=== PATIENT | female | born 1985 | race Caucasian/White ===

== ENCOUNTER 2016-12-05 07:07 | Day surgery (SDC) | payer MEDICAID ==
[~2016-12-05] VITALS: Ht 162.6 cm; Wt 90.7 kg
[~2016-12-05 07:07] MED LIST: ADVIL200 MG PO; DOXYCYCLINE HY100 M2 PO; EFFEXOR XR150 MG PO; ESTRACE1 MG PO; HYDROCODONE-APA1 TAB PO; LIPITOR80 MG PO; PERCOCET 10/3251 TA1 PO; SINGULAIR10 MG PO; TENORMIN25 MG PO; TRAZODONE HCL150 MG PO; TRIMETHOPRIM100 MG PO; XANAX2 MG PO; ZANAFLEX4 MG PO
[2016-12-05 07:48] LABS: HEMATOCRIT 36.6 % (36.0-48.0); MCH 30.8 pg (26.0-34.0); MCHC 32.8 g/dL (31.0-37.0); MCV 94.1 fL (80.0-100.0); MEAN PLATELET VOLUME 10.1 fL (7.4-10.4); RBC 3.89 10x6/uL (4.00-5.40); RDW 13.4 % (11.5-14.5); WBC 7.6 10x3/uL (4.8-10.8)
[2016-12-05] MEDS ORDERED: BAYER CHEWABLE81 MG PO (08:24)
[2016-12-05 08:25] VITALS: BP 100/66; Ht 162.6 cm; Wt 90.7 kg
[2016-12-05] MEDS ORDERED: FISH OIL 1,0001 CA1 PO (08:25)
--- NOTE | 2016-12-05 12:07 | NUR ---
1155- IV D/C'D, PT TOLERATED. CATHETER INTACT. 1158- UP OOB TO BR, VOIDED WITHOUT DIFFICULTY 1200- DISCHARGE INSTRUCTIONS COMPLETED. PT VERBALIZED UNDERSTANDING. PAPERWORK COMPLETED 1207- PT DISCHARGED VIA WHEELCHAIR.
--- NOTE | 2016-12-24 11:14 | OP ---
PATIENT NAME: SURYA CHEN MEDICAL RECORD: [id number] :84 LOCATION:D.OPS ADMISSION DATE: SURGEON: THANIA DAMON MD DATE OF OPERATION: 12/23/2016 PREOPERATIVE DIAGNOSIS: Bilateral hip pain. POSTOPERATIVE DIAGNOSIS: Bilateral hip pain. PROCEDURE: Bilateral hip injections under anesthesia. SURGEON: Thania Damon MD. ANESTHESIA: General. INTRAOPERATIVE COMPLICATIONS: None. SUMMARY OF PATHOLOGIC FINDINGS: Essentially none. OPERATIVE SUMMARY IN DETAIL: After obtaining the appropriate preoperative orthopedic surgery consents as well as anesthetic consultation, evaluation and clearance, the patient was brought to the operating room and placed on the operating table in supine position. After adequate general laryngeal mask airway was administered, the patient's bilateral inguinal regions were prepped and draped in a routine sterile fashion. An 18-gauge needle was then placed into the right hip under fluoroscopic guidance. A small amount of Isovue was utilized to be sure that it was in the appropriate position. This was followed by 5-mm 0.25% Marcaine with epinephrine and 40 mg of Depo-Medrol. Bandage was applied at this puncture site. Attention was turned to the left side. Again, on the left side, an 18-gauge needle was guided into the hip capsule, careful to avoid the neurovascular structures. A small amount of Isovue was utilized to be sure that the tip was inside the hip capsule. Again, 5 cc of 0.25% Marcaine with epinephrine and 40 mg of Depo-Medrol were injected into the hip. The patient tolerated the procedure well. Bandage was applied. She was taken to recovery room in stable condition. All final needle and sponge counts were correct. TRANSINT:[id number] Voice Confirmation ID: [id number] DOCUMENT ID: [id number] THANIA DAMON MD at 1114 CC: [id number] DICTATION DATE: 12/23/16 1826 BLOCK BREAKER: 12/23/16 2327 [facility] 12/05/[address] [address]
[2017-02-21] MEDS ORDERED: LUNESTA3 MG PO (10:54)
[2017-02-21] MEDS ORDERED: TOPAMAX25 MG PO (10:54)
== END 2016-12-05 12:07 | disposition home or self-care (01) ==
LOC: D.OPS 07:07 → D.PAN 10:00 → D.OPS 11:25 → D.PAN 11:25 → D.OPS 12:07 → D.PAN 12:30 → D.OPS 12:30
PROVIDERS: Anesthesiology
DX: M25.551 Pain in right hip (principal); M25.552 Pain in left hip; M24.271 Disorder of ligament, right ankle

== ENCOUNTER 2016-12-06 10:32 | Emergency (ER) | payer MEDICAID ==
[2016-12-05 08:25] VITALS: BMI 34.4
[~2016-12-06 10:32] MED LIST changes: +BAYER CHEWABLE81 MG PO; +FISH OIL 1,0001 CA1 PO
[2016-12-06 12:00] LABS: APPEARANCE HAZY (CLEAR); BILIRUBIN NEGATIVE (NEGATIVE); COLOR YELLOW (YELLOW); GLUCOSE NEGATIVE (NEGATIVE); KETONE NEGATIVE (NEGATIVE); LEUKOCYTE ESTERASE NEGATIVE (NEGATIVE); NITRITE NEGATIVE (NEGATIVE); PROTEIN NEGATIVE (NEGATIVE); SPECIFIC GRAVITY 1.015 (1.005-1.020); UROBILINOGEN NORMAL (NORMAL)
[2016-12-06 12:02] LABS: BACTERIA FEW /hpf (NONE SEEN); MUCUS >1+ /lpf (NONE SEEN); WHITE CELLS - URINE 0-5 /hpf (0-5); YEAST <1+ /hpf (NONE SEEN)
[2016-12-06 12:03] LABS: UDS - AMPHET NEGATIVE QUAL (NEGATIVE); UDS - BARB NEGATIVE QUAL (NEGATIVE); UDS - BENZO POSITIVE QUAL (NEGATIVE); UDS - COCAINE NEGATIVE QUAL (NEGATIVE); UDS - METH NEGATIVE QUAL (NEGATIVE); UDS - OPIATE NEGATIVE QUAL (NEGATIVE); UDS - PCP NEGATIVE QUAL (NEGATIVE); UDS - THC NEGATIVE QUAL (NEGATIVE)
[2017-02-21] MEDS ORDERED: TOPAMAX25 MG PO (10:54)
[2017-02-21] MEDS ORDERED: LUNESTA3 MG PO (10:54)
== END 2016-12-06 12:39 | disposition home or self-care (01) ==
LOC: D.ER 10:32
PROVIDERS: Physician Assistant
DX: G89.18 Other acute postprocedural pain (principal); G43.909 Migraine, unspecified, not intractable, without status migrainosus; R30.0 Dysuria; E78.00 Pure hypercholesterolemia, unspecified; F41.9 Anxiety disorder, unspecified

== ENCOUNTER 2017-02-24 09:25 | Day surgery (SDC) | payer MEDICAID ==
[~2017-02-24] VITALS: Ht 162.6 cm; Wt 90.7 kg
[~2017-02-24 09:25] MED LIST changes: +LUNESTA3 MG PO; +TOPAMAX25 MG PO
[2017-02-24 11:02] VITALS: Ht 162.6 cm; Wt 90.7 kg
[2017-02-24 11:10] LABS: HEMATOCRIT 36.6 % (36.0-48.0); HEMOGLOBIN 11.9 g/dL (12-16); MCH 29.8 pg (26.0-34.0); MCHC 32.5 g/dL (31.0-37.0); MCV 91.5 fL (80.0-100.0); MEAN PLATELET VOLUME 10.1 fL (7.4-10.4); RDW 13.4 % (11.5-14.5); WBC 6.7 10x3/uL (4.8-10.8)
[2017-02-24] MEDS ORDERED: DILAUDID4 MG PO (13:47)
--- NOTE | 2017-02-24 14:14 | NUR ---
THE PATIENT REPORTS HAVING PAIN IN HER LEFT FOREARM. SHE REPORTS THIS PAIN IS A 8 ON 0-10 SCALE. SHE REPORTS FALLING A MONTH AGO AND THE PAIN IS THE SAME SINCE.
--- NOTE | 2017-02-24 14:24 | NUR ---
ANESTHESIA CONSUTLED ABOUT THE PATIENTS PAIN AND ORDERED NO MORE MEDICATION IN RR. DISCHARGE FROM PACU ORDRED
--- NOTE | 2017-02-24 16:10 | NUR ---
SIGNIFICANT OTHER HERE, PATIENT MORE AWAKE, ASSISTED TO WALK TO BATHROOM AND URINATE IN TOILET WITHOUT DIFFICULTY. ASSISTED TO DRESS IN PERSONAL CLOTHING
--- NOTE | 2017-02-24 16:50 | NUR ---
DISCHARGE INSTRUCTIONS REVIEWED WITH PATIENT AND SPOUSE. DISCHARGED HOME VIA WHEELCHAIR TO PRIVATE VEHICLE WITH SIGNIFICANT OTHER, FAITH
--- NOTE | 2017-03-12 15:22 | OP ---
PATIENT NAME: SURYA CHEN MEDICAL RECORD: [id number] :84 LOCATION:D.OPS ADMISSION DATE: SURGEON: THANIA DAMON MD DATE OF OPERATION: 02/24/2017 Orthopedic Surgery Operative Note PREOPERATIVE DIAGNOSIS: Painful acromioclavicular arthritis. POSTOPERATIVE DIAGNOSES: Painful acromioclavicular arthritis plus impingement syndrome. PROCEDURES: 1. Arthroscopic subacromial decompression, acromioplasty and bursectomy. 2. Arthroscopic distal clavicle excision. SURGEON: Thania Damon MD ANESTHESIA: General. INTRAOPERATIVE COMPLICATIONS: None. Please note that is all in the left shoulder. OPERATIVE SUMMARY IN DETAIL: After obtaining the appropriate preoperative orthopedic surgery consent as well as anesthetic consultation, evaluation and clearance, the patient was brought to the operating room and placed on the operating table in supine position. After general laryngeal mask was administered, the patient was placed in a right lateral decubitus position. All pressure points were well padded to include down leg peroneal pad as well as axillary roll. She was held firmly to the operating table using the vacuum pack suction system. Left upper extremity and shoulder were prepped and draped in a routine sterile fashion. Arthroscopy was established in the glenohumeral joint from a posterior portal. Anterior portal was established in the anterior safe interval. Intra-articular aspect was in fairly good condition. Having completed this, the arthroscopy was established in the subacromial space. The patient was noted to have impingement. Accessory lateral portal was created. The tip of the acromion was denuded of all soft tissue using the [place] tissue ablation system. A 5-0 barrel bur was then used to perform acromioplasty at the level of acromioclavicular joint. Having completed this, through a separate anterior arthroscopic portal, the distal clavicle was excised for 1 cm using a 5-0 barrel bur. Having completed this, arthroscopy portals were closed in routine interrupted fashion using 4-0 Prolene. Sterile dressings were applied. The patient was awakened, taken to the recovery room in stable condition. All final needle and sponge counts were correct. TRANSINT:[id number] Voice Confirmation ID: [id number] DOCUMENT ID: [id number] OPERATIVE REPORT [id number] GUSTAVOSURYA DAMON MD, THANIA MCMANUS at 1522 CC: [id number] DICTATION DATE: 03/10/17 1426 BEATER ENGINEER HELPER: 03/11/17 0030 [facility] 02/24/17 [id number] [place] [address]
== END 2017-02-24 16:50 | disposition home or self-care (01) ==
LOC: D.OPS 09:25 → D.PAN 10:15 → D.OPS 13:45
PROVIDERS: Anesthesiology
DX: M13.812 Other specified arthritis, left shoulder (principal); M75.42 Impingement syndrome of left shoulder

== ENCOUNTER 2017-04-16 16:03 | Emergency (ER) | payer MEDICAID ==
[2017-02-24 11:02] VITALS: BMI 34.4
[~2017-04-16 16:03] MED LIST changes: +DILAUDID4 MG PO
[2017-04-16 16:50] LABS: APPEARANCE HAZY (CLEAR); COLOR YELLOW (YELLOW)
[2017-04-16 16:51] LABS: BILIRUBIN NEGATIVE (NEGATIVE); GLUCOSE NEGATIVE (NEGATIVE); KETONE NEGATIVE (NEGATIVE); LEUKOCYTE ESTERASE 2+ (NEGATIVE); NITRITE POSITIVE (NEGATIVE); PROTEIN 1+ mg/dL (NEGATIVE); SPECIFIC GRAVITY 1.015 (1.005-1.020); UROBILINOGEN NORMAL (NORMAL)
[2017-04-16 16:52] LABS: BASOPHILS 0.2 % (0-2); EOSINOPHILS 1.4 % (0-7); HEMOGLOBIN 12.9 g/dL (12-16); IMMATURE GRANULOCYTES 0.2 % (0-5); LYMPHOCYTES 30.9 % (15-50); MCH 30.4 pg (26.0-34.0); MCHC 32.3 g/dL (31.0-37.0); MCV 94.3 fL (80.0-100.0); MEAN PLATELET VOLUME 9.9 fL (7.4-10.4); MONOCYTES 8.1 % (2-11); NEUTROPHILS 59.2 % (40-80); PLATELET COUNT 318 10x3/uL (130-400); RBC 4.24 10x6/uL (4.00-5.40); RDW 13.1 % (11.5-14.5); WBC 8.3 10x3/uL (4.8-10.8)
[2017-04-16 16:53] LABS: BACTERIA MANY /hpf (NONE SEEN); MUCUS <1+ /lpf (NONE SEEN); WHITE CELLS - URINE >50 /hpf (0-5)
[2017-04-16 17:01] LABS: UDS - AMPHET POSITIVE QUAL (NEGATIVE); UDS - BARB NEGATIVE QUAL (NEGATIVE); UDS - BENZO POSITIVE QUAL (NEGATIVE); UDS - COCAINE NEGATIVE QUAL (NEGATIVE); UDS - METH NEGATIVE QUAL (NEGATIVE); UDS - OPIATE POSITIVE QUAL (NEGATIVE); UDS - PCP NEGATIVE QUAL (NEGATIVE); UDS - THC NEGATIVE QUAL (NEGATIVE)
[2017-04-16 17:22] LABS: ALBUMIN 3.8 g/dL (3.4-5.0); ANION GAP 14.4 mmol/L (8-16); BILIRUBIN - TOTAL 0.68 mg/dL (0.2-1.3); CALCIUM 9.4 mg/dL (8.5-10.1); CARBON DIOXIDE 28.1 mmol/L (21.0-32.0); POTASSIUM - SERUM 3.5 mmol/L (3.5-5.1); PROTEIN - SERUM 7.4 g/dL (6.4-8.2)
== END 2017-04-16 21:24 | disposition short-term general hospital (02) ==
LOC: D.ER 16:03
PROVIDERS: Emergency Medicine
DX: F33.9 Major depressive disorder, recurrent, unspecified (principal); R45.851 Suicidal ideations; N39.0 Urinary tract infection, site not specified; N76.0 Acute vaginitis; B96.89 Other specified bacterial agents as the cause of diseases classified elsewhere

== ENCOUNTER → 2017-05-13 13:32 | Outpatient (CLI) | payer MEDICAID ==
[2017-02-24 11:02] VITALS: BMI 34.4
== END | disposition home or self-care (01) ==
LOC: D.MRI 05-07 11:30
DX: M25.551 Pain in right hip (principal); M25.552 Pain in left hip

== ENCOUNTER 2018-03-19 12:14 | Emergency (ER) | payer MEDICAID ==
[2017-02-24 11:02] VITALS: BMI 34.4
[2018-03-19 12:57] LABS: BASOPHILS 0.2 % (0-2); EOSINOPHILS 0.8 % (0-7); HEMATOCRIT 39.2 % (36.0-48.0); HEMOGLOBIN 13.3 g/dL (12-16); IMMATURE GRANULOCYTES 0.3 % (0-5); LYMPHOCYTES 29.5 % (15-50); MCH 30.4 pg (26.0-34.0); MCHC 33.9 g/dL (31.0-37.0); MCV 89.7 fL (80.0-100.0); MEAN PLATELET VOLUME 10.3 fL (7.4-10.4); MONOCYTES 5.3 % (2-11); NEUTROPHILS 63.9 % (40-80); PLATELET COUNT 323 10x3/uL (130-400); RBC 4.37 10x6/uL (4.00-5.40); RDW 13.4 % (11.5-14.5)
[2018-03-19 13:19] LABS: APPEARANCE HAZY (CLEAR); BILIRUBIN NEGATIVE (NEGATIVE); COLOR YELLOW (YELLOW); GLUCOSE NEGATIVE (NEGATIVE); KETONE NEGATIVE (NEGATIVE); NITRITE NEGATIVE (NEGATIVE); PROTEIN NEGATIVE (NEGATIVE); UROBILINOGEN NORMAL (NORMAL)
[2018-03-19 13:22] LABS: RED CELLS - URINE OCC /hpf (0-5); WHITE CELLS - URINE 0-5 /hpf (0-5)
[2018-03-19 13:23] LABS: ALBUMIN 3.7 g/dL (3.4-5.0); ALKALINE PHOSPHATASE 112 U/L (46-116); ALT (SGPT) 24 U/L (10-68); AMYLASE - SERUM 61 U/L (25-115); BILIRUBIN - TOTAL 0.37 mg/dL (0.2-1.3); CALC OSMOLALITY 279 mosm/kg (275-300); CALCIUM 9.1 mg/dL (8.5-10.1); CARBON DIOXIDE 23.2 mmol/L (21.0-32.0); CHLORIDE - SERUM 103 mmol/L (98-107); CREATININE - SERUM 0.9 mg/dL (0.6-1.3); GLUCOSE 112 mg/dL (74-106); LIPASE 163 U/L (73-393); POTASSIUM - SERUM 3.7 mmol/L (3.5-5.1); PROTEIN - SERUM 7.7 g/dL (6.4-8.2); SODIUM 140 mmol/L (136-145); UREA NITROGEN 12 mg/dL (7-18); eGFR NON AFRICAN AMERICAN 76 mL/min (90-120)
[2018-03-19 13:23] LABS: BACTERIA FEW /hpf (NONE SEEN); MUCUS <1+ /lpf (NONE SEEN)
[2018-03-19 15:46] LABS: HCG SERUM NEGATIVE (NEGATIVE)
== END 2018-03-19 18:07 | disposition home or self-care (01) ==
LOC: D.ER 12:14 → D.EDHOLD 16:03 → D.ER 18:07
PROVIDERS: Emergency Medicine
DX: R10.13 Epigastric pain (principal); R10.12 Left upper quadrant pain; A59.9 Trichomoniasis, unspecified

== ENCOUNTER → 2018-03-24 07:56 | Outpatient (CLI) | payer MEDICAID ==
[2017-02-24 11:02] VITALS: BMI 34.4
== END | disposition home or self-care (01) ==
LOC: D.NM 07:56
DX: R10.9 Unspecified abdominal pain (principal)

== ENCOUNTER 2018-05-20 14:48 | Emergency (ER) | payer MEDICAID ==
[2017-02-24 11:02] VITALS: BMI 34.4
== END 2018-05-20 15:10 | disposition home or self-care (01) ==
LOC: D.ER 14:48
DX: Z02.9 Encounter for administrative examinations, unspecified (principal)

== ENCOUNTER → 2020-03-14 10:43 | Outpatient (CLI) | payer MEDICAID ==
[2017-02-24 11:02] VITALS: BMI 34.4
== END | disposition home or self-care (01) ==
LOC: D.MRI 10:43
PROVIDERS: ATTEND Orthopaedic Surgery
DX: M75.41 Impingement syndrome of right shoulder (principal)

== ENCOUNTER 2020-03-23 07:02 | Day surgery (SDC) | payer MEDICAID ==
[~2020-03-23] VITALS: Ht 162.6 cm; Wt 93.0 kg
[~2020-03-23 07:02] MED LIST changes: +ATIVAN1 MG PO; +VOLTAREN75 MG PO
[2020-03-23 07:23] LABS: HEMATOCRIT 41.7 % (36.0-48.0); HEMOGLOBIN 13.2 g/dL (12-16); MCH 28.9 pg (26.0-34.0); MCHC 31.7 g/dL (31.0-37.0); MCV 91.2 fL (80.0-100.0); MEAN PLATELET VOLUME 10.2 fL (7.4-10.4); RBC 4.57 10x6/uL (4.00-5.40); RDW 13.3 % (11.5-14.5); WBC 9.1 10x3/uL (4.8-10.8)
[2020-03-23 07:27] LABS: HCG SERUM NEGATIVE (NEGATIVE)
[2020-03-23 07:53] VITALS: BP 132/79; Ht 162.6 cm; Wt 93.0 kg
--- NOTE | 2020-03-23 08:10 | NUR ---
0740 CONSULT SUBMITTED TO NURSE STIFF LEG OPERATOR FOR BEHAVIORAL HEALTH ASSESSMENT.
[2020-03-23] MEDS ORDERED: HYDROCODON-ACE1 EA10 PO (10:32)
--- NOTE | 2020-03-23 11:57 | NUR ---
DR. PARRA NOTIFIED AND REVIEWED PT'S BEHAVIOR AND ASSESSMENT RESULTS. PT IS A LOW RISK PER DR. PARRA. DR. PARRA STATED TO GIVE RESOURCES TO PT AT TIME OF DISCHARGE. NO FURTHER ORDERS AT THIS TIME. RESOURCES REVIEWED WITH PT AND SHE VERBALIZIED UNDERSTANDING.
--- NOTE | 2020-03-23 15:38 | NUR ---
1220 IV DC'D. CATHETER TIP INTACT. NO BLEEDING AT SITE. BANDAID APPLIED.
--- NOTE | 2020-03-27 11:32 | OP ---
PATIENT NAME: SURYA CHEN MEDICAL RECORD: [id number] :84 LOCATION:[facility] ADMISSION DATE: SURGEON: THANIA DAMON MD DATE OF OPERATION: 03/23/2020 PREOPERATIVE DIAGNOSIS: Impingement syndrome of the right shoulder. POSTOPERATIVE DIAGNOSES: Impingement syndrome of the right shoulder plus severe biceps tendinitis. PROCEDURES: 1. Arthroscopic biceps tenotomy. 2. Arthroscopic distal clavicle excision done through separate incision - 1 cm. 3. Arthroscopic subacromial decompression, acromioplasty and bursectomy. SURGEON: Thania Damon MD ANESTHESIA: General. INTRAOPERATIVE COMPLICATIONS: None. SUMMARY OF PATHOLOGIC FINDINGS: Consistent with the preoperative diagnosis, the patient had impingement syndrome with acromioclavicular joint pain. She also was found to have some substantial biceps tendinitis. This was not at all unlike her contralateral shoulder that was done a few years ago. OPERATIVE SUMMARY IN DETAIL: After obtaining the appropriate preoperative orthopedic surgery consent as well as anesthetic consultation, evaluation and clearance, the patient was brought to the operating room and placed on the operating table in a supine position. After adequate general laryngeal mask airway was administered, the patient was placed in a left lateral decubitus position. All pressure points were well padded to include down leg peroneal pad as well as axillary roll. The patient was held firmly to the operating table using the vacuum pack suction system. At this point, the appropriate timeout was taken and agreed upon by all. Right upper extremity was then prepped and draped in routine sterile fashion. The arm was held in the Arthrex traction boom at 30 degrees of forward flexion, 30 degrees of abduction with 10 pounds of traction laterally. Arthroscopy was established in the glenohumeral joint from the posterior portal. Anterior portal was established in the anterior safe interval. Diagnostic arthroscopy showed the patient has severe biceps tendinitis; however, no articular side rotator cuff tearing was noted. [place] tissue ablation system was used to tenotomize the biceps tendon at the bicipital labral junction. Having completed this, attention was turned to the subacromial space. While in the subacromial space, distal lateral portal was created through which the [place] tissue ablation system was utilized to denude the undersurface of the acromion of all soft tissue elements and release the coracoacromial ligament. The patient did have a very profound and large anterior acromion process. Acromioplasty to the level of the AC joint was performed, creating a type 1 acromion from her type 3 acromion and then through an anterior arthroscopic portal. Under direct arthroscopic visualization, distal clavicle was performed. Lastly, all the bursa was taken down across the top of the rotator cuff. There was some subacromial side fraying, but no tearing, beyond approximately 5% to 10% of the tendon width was noted. Having completed this, arthroscopy portals were closed in routine interrupted fashion using 4-0 Prolene. Sterile dressings were applied. The patient was awakened, OPERATIVE REPORT [id number] SURYA CHEN taken to recovery room stable condition. All final needle and sponge counts were correct. TRANSINT:[id number] Voice Confirmation ID: [id number] DOCUMENT ID: [id number] MARISOL GAGE, THANIA MCMANUS at 1132 CC: [id number] DICTATION DATE: 03/23/20 1328 SPRUE KNOCKER: 03/23/20 1600 [facility] 03/23/20 [id number] [place] [address]
== END 2020-03-23 12:39 | disposition home or self-care (01) ==
LOC: D.OPS 07:02 → D.PAN 09:30 → D.OPS 12:39
PROVIDERS: Anesthesiology; ATTEND Orthopaedic Surgery
DX: M75.41 Impingement syndrome of right shoulder (principal); E78.5 Hyperlipidemia, unspecified; I10 Essential (primary) hypertension

== ENCOUNTER → 2020-06-16 14:41 | Outpatient (CLI) | payer MEDICAID ==
[2020-03-23 07:53] VITALS: BMI 35.2
[~2020-06-16 14:41] MED LIST changes: +HYDROCODON-ACE1 EA10 PO
== END | disposition home or self-care (01) ==
LOC: D.MRI 14:41
PROVIDERS: ATTEND Clinical Nurse Specialist Family Health
DX: M25.511 Pain in right shoulder (principal)